=== PATIENT | male | born 1975 | race Two or more races ===

== ENCOUNTER 2021-11-12 14:11 | Emergency (ER) | payer OTHER, MEDICAID ==
[~2021-11-12] VITALS: Ht 144.8 cm; Wt 96.2 kg
[~2021-11-12 14:11] MED LIST: MELATAB2 PO
[2021-11-12] MEDS ORDERED: MORPHINE SULFATE 4 MG/ML SYR/VIAL IV ONE (15:15)
[2021-11-12] MEDS ORDERED: KETAMINE 50mg/ML 10ml Vial (500mg/10ml) IV ONE (15:15)
[2021-11-12] MEDS ORDERED: ONDANSETRON HCL 4 MG/2 ML VIAL IV ONE (15:15)
[2021-11-12 17:30] VITALS: BP 126/59
[2021-11-12] MEDS ORDERED: HYDROcodone-ACET 10/325MG TAB PO ONE (18:15)
== END 2021-11-12 18:42 | disposition home or self-care (01) ==
LOC: EDBD 14:11 → ER 14:11
DX: S82.52XA Displaced fracture of medial malleolus of left tibia, initial encounter for closed fracture (principal); S93.05XA Dislocation of left ankle joint, initial encounter; F03.90 Unspecified dementia, unspecified severity, without behavioral disturbance, psychotic disturbance, mood disturbance, and anxiety; Z88.0 Allergy status to penicillin; Z88.8 Allergy status to other drugs, medicaments and biological substances; W01.0XXA Fall on same level from slipping, tripping and stumbling without subsequent striking against object, initial encounter; Y93.89 Activity, other specified; Y92.89 Other specified places as the place of occurrence of the external cause; Y99.8 Other external cause status
CPT/HCPCS: 27786; 73600; 73610; 96374; 96375; 99285; J2270; J2405